=== PATIENT | male | born 1950 | race Hispanic/Latino ===

== ENCOUNTER 2017-12-03 19:55 | Emergency (ER) | payer MEDICARE ==
[~2017-12-03] VITALS: Ht 167.6 cm; Wt 101.2 kg
[~2017-12-03 19:55] MED LIST: LISINOPRIL2.5 MG PO; VITAMIN D250000 UNIT PO
--- OUTSIDE RECORDS SUMMARY | 2017-12-03 19:57 | XMS REPORT ---
[facility] Address Unknown Phone Unavailable Care Team Providers Care Manager Applied Name Role Phone REYNA BIGGS Unavailable Unavailable Problems This patient has no known problems. Allergies, Adverse Reactions, Alerts This patient has no known allergies or adverse reactions. Medications This patient has no known medications. Encounters Start Date/Time End Date/Time Encounter Type Admission Type Attending [facility] Emergency Department Facility Care Department Encounter ID 2017-11-08 00:00:00 2017-11-08 00:00:00 Outpatient [facility] [id number] 2017-11-07 16:15:18 2017-11-07 16:15:18 Outpatient [facility] [id number] 2017-11-01 00:00:00 2017-11-01 00:00:00 Outpatient [facility] [id number] 2017-11-01 00:00:00 2017-11-01 00:00:00 Outpatient [facility] [id number] 2017-10-26 08:49:09 2017-10-26 08:49:09 Outpatient [facility] [id number] 2017-10-24 15:30:19 2017-10-24 15:30:19 Outpatient [facility] [id number] 2017-10-05 12:57:10 2017-10-05 12:57:10 Outpatient [facility] [id number] 2017-09-21 00:00:00 2017-09-21 00:00:00 Outpatient [facility] [id number] 2017-09-19 00:00:00 2017-09-19 00:00:00 Outpatient [facility] [id number] 2017-09-05 00:00:00 2017-09-05 00:00:00 Outpatient [facility] [id number] 2017-08-20 07:45:16 2017-08-20 07:45:16 Outpatient [facility] [id number] 2017-08-02 00:00:00 2017-08-02 00:00:00 Outpatient [facility] [id number] 2017-07-30 15:55:59 2017-07-30 15:55:59 Outpatient [facility] [id number] 2017-07-30 14:41:31 2017-07-30 14:41:31 Outpatient [facility] [id number] 2017-07-26 14:08:47 2017-07-26 14:08:47 Outpatient [facility] [id number] 2017-06-06 16:14:33 2017-06-06 16:14:33 Outpatient [facility] [id number] 2017-06-01 08:51:20 2017-06-01 08:51:20 Outpatient [facility] [id number] 2017-05-31 10:49:43 2017-05-31 10:49:43 Outpatient [facility] [id number] 2017-05-21 00:00:00 2017-05-21 00:00:00 Outpatient [facility] [id number] 2017-05-03 00:00:00 2017-05-03 00:00:00 Outpatient [facility] [id number] 2017-04-26 17:59:51 2017-04-26 17:59:51 Outpatient [facility] [id number] 2017-04-26 11:47:25 2017-04-26 11:47:25 Outpatient [facility] [id number] 2017-04-11 00:00:00 2017-04-11 00:00:00 Outpatient [facility] [id number] 2017-04-10 00:00:00 2017-04-10 00:00:00 Outpatient [facility] [id number] 2017-03-28 10:14:12 2017-03-28 10:14:12 Outpatient [facility] [id number] 2017-03-21 14:43:15 2017-03-21 14:43:15 Outpatient [facility] [id number] 2017-03-13 07:38:10 2017-03-13 07:38:10 Outpatient [facility] [id number] 2017-03-12 00:00:00 2017-03-12 00:00:00 Outpatient [facility] [id number] 2017-02-08 14:50:32 2017-02-08 14:50:32 Outpatient [facility] [id number] 2017-02-08 00:00:00 2017-02-08 00:00:00 Outpatient [facility] [id number] 2016-12-28 12:53:41 2016-12-28 12:53:41 Outpatient [facility] [id number] 2016-12-28 09:58:06 2016-12-28 09:58:06 Outpatient [facility] [id number] 2016-12-28 08:25:44 2016-12-28 08:25:44 Outpatient [facility] [id number] 2016-12-28 00:00:00 2016-12-28 00:00:00 Outpatient [facility] [id number] 2016-12-28 00:00:00 2016-12-28 00:00:00 Outpatient [facility] [id number] Results Test Description Test Time Test Comments Text Results Atomic Results Result Comments CT CHEST W [facility] [address] [place] [address] Patient Name: ALICE REYES MR #: [id number] : 1950 Age/Sex: 66/M Req # : [id number] Adm Physician: REYNA BIGGS MD Ordered by: JOLIE BOSS MD Report #: [id number] Location: [facility] Room/Bed: [place] [address] _ Procedure: [id number] CT/CT CHEST W Exam Date: 08/28/17 Exam Time: 1400 REPORT STATUS: Signed PROCEDURE: CT scan of the chest WITH intravenous contrast, using standard protocol. TECHNIQUE: The chest was scanned utilizing a multidetector helical scanner from the lung apex through the level of the adrenal glands after the IV administration of 100 cc of Isovue 370. Coronal and sagittal multiplanar reformations were obtained. COMPARISON: Chest radiographs 04/07/2017. INDICATIONS: CHEST PAIN FINDINGS: Lines/tubes: None. Lungs and Airways: Trace subsegmental atelectasis in the dependent portions of the lower lobes manifest by ground glass and reticular juxtapleural opacities. 6- 7 mm solid nodule in the superior segment of the right lower lobe. 4 mm groundglass nodule in the right middle lobe seen on series 3 image 32. Calcified granuloma medial segment left lower lobe seen on series 3 image 40. No consolidation, bronchiectasis, or parenchymal mass lesion. Pleura: The pleural spaces are clear. Heart and mediastinum: The visualized portions of the thyroid gland are normal. No axillary, hilar, or mediastinal lymphadenopathy. No ectasia or aneurysmal dilatation of the thoracic aorta. Great vessel origins are of normal caliber and configuration. Pulmonary outflow tract is of normal caliber. No pericardial effusion. Soft tissues: No focal soft tissue abnormalities. Abdomen : Visualized portions of the liver, gallbladder, spleen, adrenals, and pancreas are unremarkable. Bones: No osseous destructive lesions. Mild multilevel degenerative disc changes of the lower cervical and thoracic spine. Right acromioclavicular degenerative changes. IMPRESSION: No acute thoracic CT abnormalities. Mild atherosclerotic vascular disease. Solid and groundglass right pulmonary nodules measuring up to 7 mm. Per Fleischner Society 2017 guidelines, followup CT scan of the chest without contrast in 3-6 months is suggested to document stability. Dictated by: Jamilah Rosario M.D. on 08/28/2017 at 14:54 Electronically approved by: Jamilah Rosario M.D. on 08/28/2017 at 14:54 Dictated By : JAMILAH ROSARIO MD Transcribed By: LANCE on 08/28/17 1454 COPY TO: JOLIE BOSS MD ECHO COMPLETE (ECHOCARDIOGRAM) [place] [address] Patient Name : ALICE REYES MR #: [id number] : 1950 Age/Sex: 66/ M Adm Physician : REYNA BIGGS MD Admit Date : 08/28/17 Location : [facility] Room/Bed : [place] [address] REPORT: Cardiology Report DATE OF STUDY: August 28, 2017 ECHOCARDIOGRAM M-MODE: Normal chamber wall dimensions. Normal contractility. Normal mitral and aortic valves. No pericardial effusion. SECTOR SCAN: Normal chamber wall dimensions. Normal contractility. Normal mitral, aortic and tricuspid valves. No pericardial effusion. CARDIAC DOPPLER STUDY WITH COLOR: Trace mitral and tricuspid regurgitation. CONCLUSION 1. Normal left ventricular contractility without segmental wall motion abnormalities with ejection fraction of approximately 60%. 2. Trace tricuspid regurgitation, probably not clinically significant. Pulmonary artery systolic pressure is estimated 25 mmHg. Job#: [id number] RI cc: MD DG HARRIS MD Signature Date Dictated By: JOLIE BOSS MD Transcribed By: EDS on 08/29/17 <Electronically signed by JOLIE BOSS MD><<Signature on File>>10/12/17 1029 COPY TO: CHEST SINGLE (NOT PORTABLE) [place] [address] Patient Name: ALICE REYES MR #: [id number] : 1950 Age/Sex: 66/M Req #: [id number] Adm Physician: Ordered by: SHIRA THOMAS MD Report #: [id number] Location: ER Room/Bed: Procedure: [id number] DX/CHEST SINGLE (NOT PORTABLE) Exam Date: 08/27/17 Exam Time: 2044 REPORT STATUS: Signed EXAM: CHEST SINGLE (NOT PORTABLE), AP 1 view DATE: 08/27/2017 8:33 PM Time stamp on exam: 2029 hours INDICATION: Chest pain COMPARISON: PA and lateral view of the chest April 07, 2017 FINDINGS: LINES/TUBES: None LUNGS: No consolidations or edema. PLEURA: No effusions or pneumothorax. HEART AND MEDIASTINUM: Normal size and contour. BONES AND SOFT TISSUES: No acute findings. IMPRESSION: No interval change from prior exam. Signed by: Dr. Eliseo Parker M.D. on 08/27/2017 9:33 PM Dictated By: ELISEO PARKER MD 32 Transcribed By: JAMIE on 08/27/172132 COPY TO: SHIRA THOMAS MD
[2017-12-03] MEDS ORDERED: ASPIRIN 81 MG CHEW TAB PO ONE (20:30)
[2017-12-03 20:32] LABS: BASOPHILS # (AUTO) 0.1 (0.0-0.1); BASOPHILS % 1.4 % (0.0-1.0); EOSINOPHILS # (AUTO) 0.8 (0.0-0.4); EOSINOPHILS % 11.4 % (0.0-6.0); HEMATOCRIT 43.3 % (38.2-49.6); HEMOGLOBIN 14.7 g/dL (14.0-18.0); LYMPHOCYTES # (AUTO) 2.4 (1.0-3.2); LYMPHOCYTES % 32.7 % (18.0-39.1); MEAN CORPUSCULAR HEMOGLOBIN 30.6 pg (28-32); MEAN CORPUSCULAR HGB CONC 33.9 g/dL (31-35); MEAN CORPUSCULAR VOLUME 90.2 fL (81-99); MONOCYTES # (AUTO) 0.5 (0.2-0.8); NEUTROPHILS # (AUTO) 3.5 (2.1-6.9); NEUTROPHILS % 47.2 % (38.7-80.0); PLATELET COUNT 235 x10e3/uL (140-360); RED CELL DISTRIBUTION WIDTH 13.5 % (11.7-14.4)
[2017-12-03 20:34] LABS: BILIRUBIN,URINE NEGATIVE (NEGATIVE); CLARITY,URINE CLEAR (CLEAR); COLOR,URINE YELLOW (YELLOW); KETONES,URINE NEGATIVE (NEGATIVE); LEUKOCYTE ESTERASE ,URINE NEGATIVE (NEGATIVE); NITRITE,URINE NEGATIVE (NEGATIVE); PROTEIN,URINE DIPSTICK NEGATIVE (NEGATIVE); URINE UROBILINOGEN 1 mg/dL (0.2 - 1)
[2017-12-03 20:37] LABS: INR 1.16; PROTHROMBIN TIME 13.9 seconds (11.9-14.5)
[2017-12-03 20:38] LABS: PARTIAL THROMBOPLASTIN TIME 29.3 seconds (23.8-35.5)
[2017-12-03 20:44] LABS: ALANINE AMINOTRANSFERASE 32 IU/L (0-55); ALKALINE PHOSPHATASE 83 IU/L (40-150); ANION GAP 12.7 mmol/L (8-16); BLOOD UREA NITROGEN 20 mg/dL (7-26); BUN/CREATININE RATIO 19 (6-25); CALCIUM 9.4 mg/dL (8.4-10.2); CARBON DIOXIDE 24 mmol/L (22-29); CHLORIDE 108 mmol/L (98-107); CREATINE KINASE 91 IU/L (30-200); CREATININE, SERUM 1.08 mg/dL (0.72-1.25); EST GLOMERULAR FILTRATION RATE > 60 ML/MIN (60-); GLUCOSE 147 mg/dL (74-118); POTASSIUM 3.7 mmol/L (3.5-5.1); SODIUM 141 mmol/L (136-145)
[2017-12-03 20:51] LABS: BACTERIA,URINE RARE /HPF; MUCUS,URINE FEW (RARE); RBC,URINE 0-5 /HPF (0-5); WBC,URINE (MAN) 0-5 /HPF (0-5)
--- NOTE | 2017-12-03 21:21 | Diagnostic Imaging Report ---
CHEST SINGLE (PORTABLE), 12/03/2017 8:26 PM Technique: CHEST SINGLE (PORTABLE) Comparison: 08/27/2017, 01/22/2017 Clinical history: Chest pain Findings: Stable cardiomediastinal silhouette. Low lung volumes without consolidation or edema. No effusion or pneumothorax. Impression: 1. Lines/Tubes: None 2. No acute abnormality. Signed by: Dr Tierra Mora MD on 12/03/2017 9:17 PM
[2017-12-03 22:27] VITALS: BP 143/84
== END 2017-12-03 22:36 | disposition home or self-care (01) ==
LOC: ER 19:55
DX: I10 Essential (primary) hypertension (principal)
CPT/HCPCS: 36415; 71045; 80053; 81001; 82550; 82553; 83880; 84484; 85025; 85379; 85610; 85730; 93005; 99283

== ENCOUNTER 2018-02-08 20:00 | Emergency (ER) | payer MEDICARE ==
[~2018-02-08] VITALS: Ht 167.6 cm; Wt 101.2 kg
--- OUTSIDE RECORDS SUMMARY | 2018-02-08 20:02 | XMS REPORT | Continuity of Care Document ---
Author Author [facility] Organization [facility] Address [address] [place] [address] Phone Unavailable Care Team Providers Care Rate Supervisor Name Role Phone DG RODRIGUEZ MD PCP Insurance Providers Guarantor Sebas Aguiar Address [address] [place] [address] Email NONE Payer [facility] Policy Number [id number] Subscriber's Name Sebas Aguiar Relationship 18 Self / Same As Patient Group Number [id number] Group Name RETIRED Effective Date 17 Payer [employer] Advantage Policy Number [id number] Subscriber's Name Sebas Aguiar Relationship 18 Self / Same As Patient Group Number [id number] Advance Directives Directive Response Recorded Date/Time Does the patient have an advance directive? No 08/28/17 3:26am If yes, is advance directive on file with [facility]? No 08/28/17 3:26am If not on file with [facility] will patient provide a copy? No 12/03/17 7:53pm Do you have a Directive to Physician? No 12/03/17 7:53pm Do you have a Medical Power of Reheat Furnace Operator? No 12/03/17 7:53pm Do you have an out of hospital Do Not Resuscitate Order? No 12/03/17 7:53pm Do you have any special needs we should be aware of? No 12/03/17 7:53pm Do you have a support person here with you today? Yes 12/03/17 7:53pm Did patient receive Notice of Privacy Practices? Yes 12/03/17 7:53pm Did patient receive patient rights and responsibilities? Yes 12/03/17 7:53pm Problems Medical Problem Onset Date Status Chest pain Unknown Medications Current Home Medications Medication Dose Units Route Directions Days Qty Instructions Start Date Ergocalciferol (Vitamin D2) (Vitamin D2) 50,000 Unit Capsule 1 Cap Oral Use As Directed WEEKLY Lisinopril 2.5 Mg Tablet 2.5 Mg Oral Daily 30 Tab Social History Social History Problem Response Recorded Date/Time Onset Date Status Hx Psychiatric Problems No 08/28/2017 3:26am Not Applicable Not Applicable Smoking Status Start Date Stop Date Never Smoker Hospital Discharge Instructions No hospital discharge instruction information available. Plan of Care Discharge Date 12/03/17 10:36pm Disposition HOME, SELF-CARE Condition at Discharge Stable Instructions/Education Provided Hypertension Forms Provided Work/School Excuse Prescriptions See Medication Section Additional Instructions/Education FOLLOW UP WITH YOUR DOCTOR TOMORROW Functional Status No functional status information available. Allergies, Adverse Reactions, Alerts No known allergies. Immunizations No immunization information available. Vital Signs Acute Vital Signs Vital Response Date/Time Temperature (Fahrenheit) 98.3 degrees F (97.6 - 99.5) 12/03/2017 10:27pm Pulse Pulse Rate (adult) 61 bpm (60 - 90) 12/03/2017 10:27pm Respiratory Rate 18 bpm (12 - 24) 12/03/2017 10:27pm Blood Pressure 143/84 mm Hg 12/03/2017 10:27pm Height 5 ft 6 in 12/03/2017 8:03pm Weight 223 lb 12/03/2017 8:03pm Body Mass Index 36.0 kg/m^2 12/03/2017 8:03pm Results Laboratory Results Test Name Result Units Flags Reference Collection Date/Time Result Date/ Time Comments Magnesium Level 2.1 MG/DL 1.3-2.1 04/07/2017 1:20am 04/07/2017 3:24am Lipase 38 U/L 8-78 04/07/2017 1:20am 04/07/2017 3:24am Hemoglobin A1c Percent 6.0 % 4.0-7.0 08/29/2017 6:05am 08/29/2017 6: 47am Triglycerides Level 168 MG/DL H 0-149 08/29/2017 6:05am 08/29/2017 7: 01am Cholesterol Level 188 MD/DL 0-199 08/29/2017 6:05am 08/29/2017 7:01am Less than 200 mg/dL Low Risk 201 - 239 mg/dL Borderline Risk 240 mg/dl and greater High Risk LDL Cholesterol 123 MG/DL 60-130 08/29/2017 6:05am 08/29/2017 7:01am HDL Cholesterol 31 MG/DL L 40-60 08/29/2017 6:05am 08/29/2017 7:01am Cholesterol/HDL Ratio 6.1 H 3.9-4.7 08/29/2017 6:05am 08/29/2017 7: 01am White Blood Count 7.30 x10e3/uL 4.8-10.8 12/03/2017 8:05pm 12/03/2017 8 :32pm Red Blood Count 4.80 x10e6/uL 4.3-5.7 12/03/2017 8:05pm 12/03/2017 8: 32pm Hemoglobin 14.7 g/dL 14.0-18.0 12/03/2017 8:05pm 12/03/2017 8:32pm Hematocrit 43.3 % 38.2-49.6 12/03/2017 8:05pm 12/03/2017 8:32pm Mean Corpuscular Volume 90.2 fL 81-99 12/03/2017 8:05pm 12/03/2017 8: 32pm Mean Corpuscular Hemoglobin 30.6 pg 28-32 12/03/2017 8:05pm 12/03/2017 8:32pm Mean Corpuscular Hemoglobin Concent 33.9 g/dL 31-35 12/03/2017 8:05pm 12/03/2017 8:32pm Red Cell Distribution Width 13.5 % 11.7-14.4 12/03/2017 8:05pm 2017 8:32pm Platelet Count 235 x10e3/uL 140-360 12/03/2017 8:05pm 12/03/2017 8: 32pm Neutrophils (%) (Auto) 47.2 % 38.7-80.0 12/03/2017 8:05pm 12/03/2017 8: 32pm Lymphocytes (%) (Auto) 32.7 % 18.0-39.1 12/03/2017 8:05pm 12/03/2017 8: 32pm Monocytes (%) (Auto) 7.0 % 4.4-11.3 12/03/2017 8:05pm 12/03/2017 8: 32pm Eosinophils (%) (Auto) 11.4 % H 0.0-6.0 12/03/2017 8:05pm 12/03/2017 8: 32pm Basophils (%) (Auto) 1.4 % H 0.0-1.0 12/03/2017 8:05pm 12/03/2017 8: 32pm IM GRANULOCYTES % 0.3 % 0.0-1.0 12/03/2017 8:05pm 12/03/2017 8:32pm Neutrophils # (Auto) 3.5 2.1-6.9 12/03/2017 8:05pm 12/03/2017 8:32pm Lymphocytes # (Auto) 2.4 1.0-3.2 12/03/2017 8:05pm 12/03/2017 8:32pm Monocytes # (Auto) 0.5 0.2-0.8 12/03/2017 8:05pm 12/03/2017 8:32pm Eosinophils # (Auto) 0.8 H 0.0-0.4 12/03/2017 8:05pm 12/03/2017 8: 32pm Basophils # (Auto) 0.1 0.0-0.1 12/03/2017 8:05pm 12/03/2017 8:32pm Absolute Immature Granulocyte (auto 0.02 x10e3/uL 0-0.1 12/03/2017 8: 05pm 12/03/2017 8:32pm Prothrombin Time 13.9 seconds 11.9-14.5 12/03/2017 8:05pm 12/03/2017 8: 39pm Prothromb Time International Ratio 1.16 12/03/2017 8:05pm 2017 8:39pm Oral Anticoagulant Therapy INR Values: 1. Low Intensity Therapy 1.5 - 2.0 2. Moderate Intensity Therapy 2.0 - 3.0 3. High Intensity Therapy(1) 2.5 - 3.5 4. High Intensity Therapy(2) 3.0 - 4.0 5. Panic Value INR > 5.0 Activated Partial Thromboplast Time 29.3 seconds 23.8-35.5 12/03/2017 8: 05pm 12/03/2017 8:39pm D-Dimer Quantitative (PE/DVT) 0.36 ug/mLFEU 0.00-0.45 12/03/2017 8:05pm 12/03/2017 8:50pm Urine Color YELLOW YELLOW 12/03/2017 8:20pm 12/03/2017 8:35pm Urine Clarity CLEAR CLEAR 12/03/2017 8:20pm 12/03/2017 8:35pm Urine Specific Hurst 1.020 1.010-1.025 12/03/2017 8:20pm 2017 8:35pm Urine pH 5 5 - 7 12/03/2017 8:20pm 12/03/2017 8:35pm Urine Leukocyte Esterase NEGATIVE NEGATIVE 12/03/2017 8:20pm 2017 8:35pm Urine Nitrite NEGATIVE NEGATIVE 12/03/2017 8:20pm 12/03/2017 8:35pm Urine Protein NEGATIVE NEGATIVE 12/03/2017 8:20pm 12/03/2017 8:35pm Urine Glucose (UA) NEGATIVE NEGATIVE 12/03/2017 8:20pm 12/03/2017 8: 35pm Urine Ketones NEGATIVE NEGATIVE 12/03/2017 8:20pm 12/03/2017 8:35pm Urine Urobilinogen 1 mg/dL 0.2 - 1 12/03/2017 8:20pm 12/03/2017 8:35pm Urine Bilirubin NEGATIVE NEGATIVE 12/03/2017 8:20pm 12/03/2017 8: 35pm Urine Blood 1+ H NEGATIVE 12/03/2017 8:20pm 12/03/2017 8:35pm Urine WBC 0-5 /HPF 0-5 12/03/2017 8:20pm 12/03/2017 8:51pm Urine RBC 0-5 /HPF 0-5 12/03/2017 8:20pm 12/03/2017 8:51pm Urine Bacteria RARE /HPF NONE 12/03/2017 8:20pm 12/03/2017 8:51pm Urine Epithelial Cells NONE /LPF NONE 12/03/2017 8:20pm 12/03/2017 8: 51pm Urine Mucus FEW H RARE 12/03/2017 8:20pm 12/03/2017 8:51pm Sodium Level 141 mmol/L 136-145 12/03/2017 8:05pm 12/03/2017 8:50pm Potassium Level 3.7 mmol/L 3.5-5.1 12/03/2017 8:05pm 12/03/2017 8:50pm Chloride Level 108 mmol/L H 98-107 12/03/2017 8:05pm 12/03/2017 8:50pm Carbon Dioxide Level 24 mmol/L 22-29 12/03/2017 8:05pm 12/03/2017 8: 50pm Anion Gap 12.7 mmol/L 8-16 12/03/2017 8:05pm 12/03/2017 8:50pm Blood Urea Nitrogen 20 mg/dL 7-12/03/2017 8:05pm 12/03/2017 8:50pm Creatinine 1.08 mg/dL 0.72-1.25 12/03/2017 8:05pm 12/03/2017 8:50pm BUN/Creatinine Ratio 19 6-25 12/03/2017 8:05pm 12/03/2017 8:50pm Estimat Glomerular Filtration Rate > 60 ML/MIN 60- 12/03/2017 8:05pm 8:50pm Ranges were taken from the National Kidney Disease Education Program and the National Kidney Foundation literature. Reference ranges: 60 or greater: Normal 16-59 (for 3 consecutive months): Chronic kidney disease 15 or less: Kidney failure Glucose Level 147 mg/dL H 74-118 12/03/2017 8:05pm 12/03/2017 8:50pm Calcium Level 9.4 mg/dL 8.4-10.2 12/03/2017 8:05pm 12/03/2017 8:50pm Total Bilirubin 0.3 mg/dL 0.2-1.2 12/03/2017 8:05pm 12/03/2017 8:50pm Aspartate Amino Transf (AST/SGOT) 20 IU/L 5-34 12/03/2017 8:05pm 2017 8:50pm Alanine Aminotransferase (ALT/SGPT) 32 IU/L 0-55 12/03/2017 8:05pm 08/2018 8:50pm Total Protein 8.1 g/dL 6.5-8.1 12/03/2017 8:05pm 12/03/2017 8:50pm Albumin 4.0 g/dL 3.5-5.0 12/03/2017 8:05pm 12/03/2017 8:50pm Globulin 4.1 g/dL H 2.3-3.5 12/03/2017 8:05pm 12/03/2017 8:50pm Albumin/Globulin Ratio 1.0 0.8-2.0 12/03/2017 8:05pm 12/03/2017 8: 50pm Alkaline Phosphatase 83 IU/L 40-150 12/03/2017 8:05pm 12/03/2017 8: 50pm B-Type Natriuretic Peptide 43.6 pg/mL 0-100 12/03/2017 8:05pm 2017 8:54pm Creatine Kinase 91 IU/L 30-200 12/03/2017 8:05pm 12/03/2017 8:50pm Creatine Kinase MB 0.60 ng/mL 0-5.0 12/03/2017 8:05pm 12/03/2017 8: 51pm Troponin I < 0.001 ng/mL 0-0.300 12/03/2017 8:05pm 12/03/2017 8:51pm Procedures Procedure Status Date Provider(s) Computed tomography of brain without radiopaque contrast Active 04/07/17 SHIRA THOMAS MD X-ray of chest, two views Active 04/07/17 SHIRA THOMAS MD X-ray of chest, single view Active 08/27/17 SHIRA THOMAS MD Computed tomography of chest with contrast Active 08/28/17 JOLIE BOSS MD Encounters Encounter Location Arrival/Admit Date Discharge/Depart Date Attending Provider Departed Emergency Room [facility] 12/03/17 7:55pm 10:36pm SHIRA THOMAS MD Discharged Inpatient (obs) [facility] 08/28/17 2:14am 03/10 11:03am REYNA BIGGS MD Departed Emergency Room [facility] 04/07/17 12:51am 04/07 5:30am SHIRA THOMAS MD
[2018-02-08] MEDS ORDERED: KETOROLAC TROMETHAMINE 60 MG/2 ML VIAL IM ONE (20:18)
[2018-02-08] MEDS ORDERED: METOCLOPRAMIDE HCL 10 MG TAB PO ONE (20:30)
[2018-02-08] MEDS ORDERED: DIPHENHYDRAMINE HCL 25 MG CAP PO ONE (20:30)
[2018-02-08] MEDS ORDERED: IBUPROFEN400 MG PO (20:34)
[2018-02-08 21:54] VITALS: BP 110/77
[2018-02-08] MEDS ORDERED: ULTRAM 50MG50 MG PO (21:54)
--- NOTE | 2018-02-08 22:43 | Diagnostic Imaging Report ---
History: Headache Comparison studies: None Technique: Axial images were obtained from the skull base to the vertex. Coronal and sagittal reconstructions obtained from the axial data. Findings: Scalp/skull: No abnormalities. No fractures, blastic or lytic lesions. Extra-axial spaces: No masses. No fluid collections. Brain sulci: Appropriate for age. Ventricles: Normal in size and configuration. No hydrocephalus. Parenchyma: No abnormal densities. No masses, hemorrhage, acute or chronic cortical vascular insults. Sellar/suprasellar region: No abnormalities Craniocervical junction: Patent foramen magnum. No Chiari one malformation. Incidental atherosclerotic calcifications in the carotid siphons and vertebral arteries. IMPRESSION: No intracranial abnormalities. Signed by: Dr. Alberto Granados M.D. on 02/08/2018 10:40 PM
== END 2018-02-08 22:02 | disposition home or self-care (01) ==
LOC: ER 20:00
DX: R51 Headache (principal); I10 Essential (primary) hypertension
CPT/HCPCS: 70450; 96372; 99283; J1885

== ENCOUNTER 2021-01-17 21:10 | Observation (INO) | payer MEDICARE ==
[~2021-01-17] VITALS: Ht 167.6 cm; Wt 104.3 kg
[~2021-01-17 21:10] MED LIST changes: +IBUPROFEN400 MG PO; +ULTRAM 50MG50 MG PO
[2021-01-17] MEDS ORDERED: ASPIRIN 81 MG CHEW TAB PO ONE ×2 (21:30→23:15)
[2021-01-17 21:48] LABS: BASOPHILS # (AUTO) 0.1 (0.0-0.1); BASOPHILS % 1.3 % (0.0-1.0); EOSINOPHILS # (AUTO) 1.3 (0.0-0.4); EOSINOPHILS % 16.2 % (0.0-6.0); HEMATOCRIT 40.9 % (38.2-49.6); HEMOGLOBIN 13.5 g/dL (14.0-18.0); LYMPHOCYTES # (AUTO) 2.8 (1.0-3.2); LYMPHOCYTES % 33.8 % (18.0-39.1); MEAN CORPUSCULAR HEMOGLOBIN 30.1 pg (28-32); MEAN CORPUSCULAR VOLUME 91.1 fL (81-99); MONOCYTES # (AUTO) 0.8 (0.2-0.8); MONOCYTES % 9.4 % (4.4-11.3); NEUTROPHILS # (AUTO) 3.2 (2.1-6.9); NEUTROPHILS % 39.1 % (38.7-80.0); PLATELET COUNT 250 x10e3/uL (140-360); RED BLOOD COUNT 4.49 x10e6/uL (4.3-5.7); RED CELL DISTRIBUTION WIDTH 13.1 % (11.7-14.4)
[2021-01-17 22:12] LABS: ALANINE AMINOTRANSFERASE 20 IU/L (0-55); ALBUMIN 3.7 g/dL (3.5-5.0); ALBUMIN/GLOBULIN RATIO 0.9 (0.8-2.0); ALKALINE PHOSPHATASE 100 IU/L (40-150); BLOOD UREA NITROGEN 19 mg/dL (7-26); BUN/CREATININE RATIO 19 (6-25); CALCIUM 9.2 mg/dL (8.4-10.2); CARBON DIOXIDE 24 mmol/L (22-29); CHLORIDE 106 mmol/L (98-107); CREATINE KINASE 91 IU/L (30-200); CREATININE, SERUM 0.99 mg/dL (0.72-1.25); EST GLOMERULAR FILTRATION RATE > 60 ML/MIN (60-); GLUCOSE 154 mg/dL (74-118); SODIUM 141 mmol/L (136-145)
[2021-01-18] MEDS ORDERED: ONDANSETRON HCL INJ 2MG/ML 2ML 2 MG/ML VIAL IV STA (00:03)
[2021-01-18] MEDS ORDERED: MORPHINE SULFATE INJ 4 MG/ML INJ 1ML IV STA (00:03)
[2021-01-18] MEDS ORDERED: KETOROLAC TROMETHAMINE 30 MG/ML VIAL IV STA (00:55)
[2021-01-18] MEDS ORDERED: IOPAMIDOL 370 MG/ML 200 ML INFUS..BTL INJ ONE (00:57)
[2021-01-18] MEDS ORDERED: SODIUM CHLORIDE 0.9% 50ML 50 ML ONE (00:57)
[2021-01-18] MEDS ORDERED: ASPIRIN 81 MG CHEW TAB PO ONE (02:30)
[2021-01-18] MEDS ORDERED: ASPIRIN 81 MG CHEW TAB ONE (02:51)
[2021-01-18 03:46] LABS: CREATINE KINASE MB 0.5 ng/mL (0-5.0)
[2021-01-18] MEDS ORDERED: MORPHINE SULFATE INJ 2 MG/ML SYR IV PRN (04:00)
[2021-01-18] MEDS ORDERED: ONDANSETRON HCL INJ 2MG/ML 2ML 2 MG/ML VIAL IV PRN (04:30)
[2021-01-18] MEDS ORDERED: ATROPINE SULFATE 1 MG/ML VIAL IV PRN (06:15)
[2021-01-18] MEDS ORDERED: ASPIRIN 81 MG ENTERIC COATED PO STA (08:01)
[2021-01-18 08:47] LABS: CHOL/HDL RATIO 3.9 (3.9-4.7)
[2021-01-18] MEDS: NITROGLYCERIN 0.4 MG PATCH TOP SCH (09:18)
[2021-01-18 11:17] LABS: CREATINE KINASE MB 0.5 ng/mL (0-5.0)
[2021-01-18 19:10] VITALS: BP 135/73
[2021-01-18] MEDS ORDERED: ASPIRIN81 MG PO (20:19)
[2021-01-18] MEDS ORDERED: NIFEDIPINE ER30 M1 PO (20:19)
[2021-01-18] MEDS ORDERED: FAMOTIDINE20 MG PO (20:19)
[2021-01-18 20:29] VITALS: BP 135/73
[2021-01-18 20:29] LABS: CREATINE KINASE MB 0.5 ng/mL (0-5.0)
[2021-01-18] MEDS ORDERED: ACETAMINOPHEN 325 MG TAB PO PRN (21:00)
[2021-01-18 21:35] VITALS: BP 135/73
[2021-01-19] VITALS: BP 122/68
[2021-01-19 04:00] VITALS: BP 122/66
[2021-01-19 06:04] LABS: BASOPHILS # (AUTO) 0.1 (0.0-0.1); BASOPHILS % 1.7 % (0.0-1.0); EOSINOPHILS # (AUTO) 1.2 (0.0-0.4); HEMATOCRIT 40.3 % (38.2-49.6); HEMOGLOBIN 13.1 g/dL (14.0-18.0); LYMPHOCYTES # (AUTO) 1.8 (1.0-3.2); MEAN CORPUSCULAR HEMOGLOBIN 30.1 pg (28-32); MEAN CORPUSCULAR HGB CONC 32.5 g/dL (31-35); MEAN CORPUSCULAR VOLUME 92.6 fL (81-99); MONOCYTES # (AUTO) 0.6 (0.2-0.8); MONOCYTES % 10.2 % (4.4-11.3); NEUTROPHILS # (AUTO) 2.4 (2.1-6.9); NEUTROPHILS % 38.8 % (38.7-80.0); PLATELET COUNT 231 x10e3/uL (140-360); RED BLOOD COUNT 4.35 x10e6/uL (4.3-5.7); RED CELL DISTRIBUTION WIDTH 13.2 % (11.7-14.4)
[2021-01-19 06:33] LABS: ALANINE AMINOTRANSFERASE 16 IU/L (0-55); ALBUMIN 3.5 g/dL (3.5-5.0); ALKALINE PHOSPHATASE 83 IU/L (40-150); ANION GAP 14.9 mmol/L (8-16); BLOOD UREA NITROGEN 16 mg/dL (7-26); BUN/CREATININE RATIO 18 (6-25); CALCIUM 8.9 mg/dL (8.4-10.2); CARBON DIOXIDE 24 mmol/L (22-29); CHLORIDE 106 mmol/L (98-107); CREATININE, SERUM 0.89 mg/dL (0.72-1.25); EST GLOMERULAR FILTRATION RATE > 60 ML/MIN (60-); GLUCOSE 105 mg/dL (74-118); POTASSIUM 3.9 mmol/L (3.5-5.1); SODIUM 141 mmol/L (136-145)
[2021-01-19 07:26] LABS: CREATINE KINASE MB 0.5 ng/mL (0-5.0)
[2021-01-19 07:39] VITALS: BP 120/67
[2021-01-19] MEDS: NITROGLYCERIN 0.4 MG PATCH TOP SCH (09:00)
[2021-01-19 09:02] VITALS: BP 120/67
[2021-01-19] MEDS ORDERED: REGADENOSON 0.4 MG/5 ML SYR IV ONE (09:48)
[2021-01-19 11:43] VITALS: BP 139/80
[2021-01-19] MEDS ORDERED: PRAVACHOL20 MG PO (13:43)
[2021-01-19] MEDS ORDERED: PANTOPRAZOLE SO40 MG PO (13:43)
[2021-01-19 15:43] VITALS: BP 127/69
== END 2021-01-19 16:05 | disposition home or self-care (01) ==
LOC: ER 21:21 → ERHOLD 01-18 03:53 → MED/SURG3 01-18 18:55
PROVIDERS: ADMIT Internal Medicine; ATTEND Internal Medicine
DX: R07.89 Other chest pain (principal); I10 Essential (primary) hypertension; Z68.37 Body mass index [BMI] 37.0-37.9, adult; M17.11 Unilateral primary osteoarthritis, right knee; Z86.011 Personal history of benign neoplasm of the brain; F10.21 Alcohol dependence, in remission; E66.9 Obesity, unspecified; K21.9 Gastro-esophageal reflux disease without esophagitis; Z20.822 Contact with and (suspected) exposure to COVID-19
CPT/HCPCS: 36415 ×3; 71045; 71260; 78452; 80053 ×2; 80061; 82550 ×3; 82553 ×3; 83036; 83880; 84484 ×3; 85025 ×2; 85379; 93005; 93017; 93306; 99284; A9502; G0378 ×2; J1885; J2785; Q9967; U0002; J2270

== ENCOUNTER 2021-03-16 07:18 | Emergency (ER) | payer MEDICARE ==
[~2021-03-16] VITALS: Ht 167.6 cm; Wt 104.3 kg
[~2021-03-16 07:18] MED LIST changes: +ASPIRIN81 MG PO; +FAMOTIDINE20 MG PO; +NIFEDIPINE ER30 M1 PO; +PANTOPRAZOLE SO40 MG PO; +PRAVACHOL20 MG PO
[2021-03-16] MEDS ORDERED: ASPIRIN 81 MG CHEW TAB PO STA (07:37)
[2021-03-16 07:48] LABS: BASOPHILS # (AUTO) 0.1 (0.0-0.1); BASOPHILS % 2.1 % (0.0-1.0); EOSINOPHILS # (AUTO) 1.1 (0.0-0.4); EOSINOPHILS % 16.8 % (0.0-6.0); HEMATOCRIT 44.7 % (38.2-49.6); HEMOGLOBIN 14.5 g/dL (14.0-18.0); LYMPHOCYTES # (AUTO) 2.6 (1.0-3.2); LYMPHOCYTES % 39.1 % (18.0-39.1); MEAN CORPUSCULAR HGB CONC 32.4 g/dL (31-35); MEAN CORPUSCULAR VOLUME 92.4 fL (81-99); MONOCYTES # (AUTO) 0.5 (0.2-0.8); MONOCYTES % 7.8 % (4.4-11.3); NEUTROPHILS # (AUTO) 2.2 (2.1-6.9); PLATELET COUNT 245 x10e3/uL (140-360); RED BLOOD COUNT 4.84 x10e6/uL (4.3-5.7); RED CELL DISTRIBUTION WIDTH 12.6 % (11.7-14.4)
[2021-03-16 08:08] LABS: ANION GAP 11.9 mmol/L (8-16); CALCIUM 9.5 mg/dL (8.4-10.2); CREATININE, SERUM 1.09 mg/dL (0.72-1.25); POTASSIUM 3.9 mmol/L (3.5-5.1)
[2021-03-16 08:15] LABS: CREATINE KINASE MB 3.7 ng/mL (0-5.0)
[2021-03-16 10:30] VITALS: BP 125/86
== END 2021-03-16 10:32 | disposition home or self-care (01) ==
LOC: ER 07:41
DX: I10 Essential (primary) hypertension (principal); R00.1 Bradycardia, unspecified; K21.9 Gastro-esophageal reflux disease without esophagitis; R94.31 Abnormal electrocardiogram [ECG] [EKG]
CPT/HCPCS: 36415; 71045; 80053; 82550; 82553; 83735; 83880; 84484; 85025; 93005; 99284

== ENCOUNTER 2022-02-07 07:12 | Emergency (ER) | payer OTHER, MEDICARE ==
[~2022-02-07] VITALS: Ht 167.6 cm; Wt 104.3 kg
[2022-02-07] MEDS ORDERED: SODIUM CHLORIDE FLUSH 10 ML SYR IV PRN (07:30)
[2022-02-07 07:33] LABS: BASOPHILS # (AUTO) 0.1 (0.0-0.1); BASOPHILS % 1.4 % (0.0-1.0); EOSINOPHILS # (AUTO) 1.1 (0.0-0.4); EOSINOPHILS % 18.5 % (0.0-6.0); HEMATOCRIT 44.4 % (38.2-49.6); HEMOGLOBIN 14.2 g/dL (14.0-18.0); LYMPHOCYTES # (AUTO) 1.8 (1.0-3.2); LYMPHOCYTES % 31.8 % (18.0-39.1); MEAN CORPUSCULAR HEMOGLOBIN 29.8 pg (28-32); MEAN CORPUSCULAR VOLUME 93.1 fL (81-99); MONOCYTES # (AUTO) 0.5 (0.2-0.8); NEUTROPHILS # (AUTO) 2.3 (2.1-6.9); NEUTROPHILS % 40.1 % (38.7-80.0); PLATELET COUNT 233 x10e3/uL (140-360); RED BLOOD COUNT 4.77 x10e6/uL (4.3-5.7); RED CELL DISTRIBUTION WIDTH 12.7 % (11.7-14.4)
[2022-02-07 07:51] LABS: AMPHETAMINES SCREEN,URINE NEGATIVE (NEGATIVE); BENZODIAZEPINES SCREEN,URINE NEGATIVE (NEGATIVE); PHENCYCLIDINE SCREEN,URINE NEGATIVE (NEGATIVE)
[2022-02-07 07:52] LABS: CLARITY,URINE CLEAR (CLEAR); COLOR,URINE YELLOW (YELLOW); KETONES,URINE NEGATIVE (NEGATIVE); LEUKOCYTE ESTERASE ,URINE NEGATIVE (NEGATIVE); NITRITE,URINE NEGATIVE (NEGATIVE); PROTEIN,URINE DIPSTICK NEGATIVE (NEGATIVE); URINE UROBILINOGEN 0.2 mg/dL (0.2 - 1)
[2022-02-07 07:54] LABS: ALANINE AMINOTRANSFERASE 17 IU/L (0-55); ALBUMIN 3.5 g/dL (3.5-5.0); ALBUMIN/GLOBULIN RATIO 0.8 (0.8-2.0); ALKALINE PHOSPHATASE 76 IU/L (40-150); ANION GAP 14.9 mmol/L (8-16); BLOOD UREA NITROGEN 16 mg/dL (7-26); BUN/CREATININE RATIO 15 (6-25); CALCIUM 9.2 mg/dL (8.4-10.2); CARBON DIOXIDE 24 mmol/L (22-29); CHLORIDE 107 mmol/L (98-107); CREATININE, SERUM 1.08 mg/dL (0.72-1.25); EST GLOMERULAR FILTRATION RATE 68 ML/MIN (60-); GLUCOSE 107 mg/dL (74-118); POTASSIUM 3.9 mmol/L (3.5-5.1); SODIUM 142 mmol/L (136-145)
[2022-02-07 08:08] LABS: BACTERIA,URINE FEW /HPF; RBC,URINE 0-5 /HPF (0-5); WBC,URINE (MAN) 0-5 /HPF (0-5)
[2022-02-07 08:09] LABS: EPITHELIAL CELLS,URINE RARE /LPF
[2022-02-07 08:12] LABS: INR 1.07; PROTHROMBIN TIME 14.9 seconds (11.9-14.5)
== END 2022-02-07 09:54 | disposition home or self-care (01) ==
LOC: ER 07:21
DX: R10.33 Periumbilical pain (principal); K42.9 Umbilical hernia without obstruction or gangrene; R00.1 Bradycardia, unspecified; I10 Essential (primary) hypertension; K21.9 Gastro-esophageal reflux disease without esophagitis; R94.31 Abnormal electrocardiogram [ECG] [EKG]
CPT/HCPCS: 36415; 71045; 74176; 80053; 80307; 81001; 84484; 85025; 85610; 85730; 93005; 99284

== ENCOUNTER 2022-08-23 19:30 | Emergency (ER) | payer MEDICARE ==
[~2022-08-23] VITALS: Ht 167.6 cm; Wt 104.3 kg
[2022-08-23 20:04] LABS: CLARITY,URINE CLEAR (CLEAR); COLOR,URINE YELLOW (YELLOW); KETONES,URINE NEGATIVE (NEGATIVE); LEUKOCYTE ESTERASE ,URINE NEGATIVE (NEGATIVE); NITRITE,URINE NEGATIVE (NEGATIVE); PROTEIN,URINE DIPSTICK NEGATIVE (NEGATIVE); URINE UROBILINOGEN 0.2 mg/dL (0.2 - 1)
[2022-08-23 20:16] LABS: BACTERIA,URINE FEW /HPF; RBC,URINE 0-5 /HPF (0-5)
== END 2022-08-23 20:33 | disposition home or self-care (01) ==
LOC: ER 19:40
DX: I10 Essential (primary) hypertension (principal); N40.0 Benign prostatic hyperplasia without lower urinary tract symptoms; R35.0 Frequency of micturition
CPT/HCPCS: 36415; 81001; 82948; 99283

== ENCOUNTER 2022-08-24 23:54 | Emergency (ER) | payer MEDICARE ==
[~2022-08-24] VITALS: Ht 167.6 cm; Wt 104.3 kg
== END 2022-08-25 00:15 | disposition home or self-care (01) ==
LOC: ER 08-25 00:07
DX: I10 Essential (primary) hypertension (principal); K21.9 Gastro-esophageal reflux disease without esophagitis
CPT/HCPCS: 99282

== ENCOUNTER 2023-03-26 05:57 | Emergency (ER) | payer MEDICARE ==
[~2023-03-26] VITALS: Ht 167.6 cm; Wt 104.3 kg
[2023-03-26 05:59] VITALS: O2SAT 100
[2023-03-26 06:27] LABS: BASOPHILS # (AUTO) 0.1 (0.0-0.1); BASOPHILS % 1.5 % (0.0-1.0); EOSINOPHILS # (AUTO) 1.1 (0.0-0.4); EOSINOPHILS % 16.2 % (0.0-6.0); LYMPHOCYTES # (AUTO) 2.1 (1.0-3.2); LYMPHOCYTES % 30.9 % (18.0-39.1); MEAN CORPUSCULAR HEMOGLOBIN 30.3 pg (28-32); MEAN CORPUSCULAR HGB CONC 32.5 g/dL (31-35); MEAN CORPUSCULAR VOLUME 93.2 fL (81-99); MONOCYTES # (AUTO) 0.6 (0.2-0.8); MONOCYTES % 8.4 % (4.4-11.3); NEUTROPHILS % 42.9 % (38.7-80.0); PLATELET COUNT 206 x10e3/uL (140-360); RED BLOOD COUNT 4.29 x10e6/uL (4.3-5.7); RED CELL DISTRIBUTION WIDTH 12.8 % (11.7-14.4)
[2023-03-26 06:51] LABS: ALBUMIN 3.5 g/dL (3.5-5.0); ALBUMIN/GLOBULIN RATIO 0.9 (0.8-2.0); ANION GAP 14.2 mmol/L (8-16); CALCIUM 9.4 mg/dL (8.4-10.2); CREATININE, SERUM 1.22 mg/dL (0.72-1.25); POTASSIUM 4.2 mmol/L (3.5-5.1)
[2023-03-26 06:54] LABS: CLARITY,URINE CLEAR (CLEAR); COLOR,URINE YELLOW (YELLOW)
[2023-03-26 06:56] LABS: KETONES,URINE NEGATIVE (NEGATIVE); LEUKOCYTE ESTERASE ,URINE NEGATIVE (NEGATIVE); NITRITE,URINE NEGATIVE (NEGATIVE); PROTEIN,URINE DIPSTICK NEGATIVE (NEGATIVE); URINE UROBILINOGEN 0.2 mg/dL (0.2 - 1)
[2023-03-26 07:13] LABS: BACTERIA,URINE RARE /HPF; EPITHELIAL CELLS,URINE FEW /LPF; RBC,URINE 0-5 /HPF (0-5); WBC,URINE (MAN) 0-5 /HPF (0-5)
== END 2023-03-26 07:48 | disposition home or self-care (01) ==
LOC: ER 06:03
DX: R06.00 Dyspnea, unspecified (principal); I10 Essential (primary) hypertension
CPT/HCPCS: 36415; 71045; 80053; 81001; 84484; 85025; 93005; 99283